=== PATIENT | female | born 1965 | race Caucasian/White ===

== ENCOUNTER 2022-07-27 08:13 | Day surgery (SDC) | payer BC ==
[~2022-07-27] VITALS: Ht 157.5 cm; Wt 32.7 kg
[~2022-07-27 08:13] MED LIST: AMBIEN5 MG PO; ASPIRINCHW 81MG PO; B121000 MC1 PO; BACTRIM DS1 TAB PO; BACTROBAN2 % EX; CIPRO XR500 M1 PO; COQ-1030 M1 PO; D31000 UNIT PO; ESTRADIOL1 MG PO; LEVAQUIN750 MG PO; LIPITOR20 M1 PO; M2 MAGNESIUM100 MG PO; MOUNJARO10 MG; NUVARING; NUVARING VA; PROGESTERONE200 MG PO
[2022-07-27] MEDS ORDERED: PERCOCET 5/321 COMBO PO (11:50)
[2022-07-27 12:47] VITALS: BP 120/65
== END 2022-07-27 12:50 | disposition home or self-care (01) | DRG 349 ==
LOC: ORM 08:13
PROVIDERS: ATTEND Surgery
PROC: 06BY3ZC Excision of Hemorrhoidal Plexus, Percutaneous Approach (ICD-10-PCS; principal; 2022-07-27)
DX: K64.2 Third degree hemorrhoids (principal)
CPT/HCPCS: C9290; J0690